=== PATIENT | female | born 1955 ===

== ENCOUNTER → 2018-08-07 | Outpatient (CLI) | payer OTHER ==
[~2018-08-07] MED LIST: ESTRADIOL1 MG PO; HYDACE5 PO; NAPR550 PO; Omeprazole20 M1 PO; TOPI25 PO
== END ==
LOC: LAB EV 10:30 → LAB SHORT 10:30
DX: N39.0 Urinary tract infection, site not specified (principal); R30.0 Dysuria
CPT/HCPCS: 87077; 87086; 87186

== ENCOUNTER 2023-06-19 08:29 | Day surgery (SDC) | payer OTHER ==
[~2023-06-19] VITALS: Ht 167.6 cm; Wt 67.3 kg
[2023-06-19] MEDS ORDERED: HYCODAN (08:49)
[2023-06-19 11:02] VITALS: BP 107/63
== END 2023-06-19 11:06 | disposition home or self-care (01) ==
LOC: ORSCSDS 08:29
PROVIDERS: Internal Medicine Gastroenterology
PROC: 0DB78ZX Excision of Stomach, Pylorus, Via Natural or Artificial Opening Endoscopic, Diagnostic (ICD-10-PCS; principal; 2023-06-19 09:45)
PROC: 0DB58ZX Excision of Esophagus, Via Natural or Artificial Opening Endoscopic, Diagnostic (ICD-10-PCS; principal; 2023-06-19 09:45)
PROC: 0DJD8ZZ Inspection of Lower Intestinal Tract, Via Natural or Artificial Opening Endoscopic (ICD-10-PCS; principal; 2023-06-19 09:45)
DX: R09.A2 Foreign body sensation, throat (principal); K22.70 Barrett's esophagus without dysplasia; K21.9 Gastro-esophageal reflux disease without esophagitis; K29.70 Gastritis, unspecified, without bleeding; Z12.11 Encounter for screening for malignant neoplasm of colon; K57.30 Diverticulosis of large intestine without perforation or abscess without bleeding; Z86.010 Personal history of colon polyps; F17.210 Nicotine dependence, cigarettes, uncomplicated
CPT/HCPCS: 43239; G0105; 88305; 88342; J2704